=== PATIENT | female | born 1975 | race Asian ===

== ENCOUNTER → 2016-11-30 | Outpatient (CLI) | payer BC ==
--- NOTE | 2016-11-30 14:14 | KCIC ---
PROCEDURE Pelvic ultrasound dated 11/30/2016. HISTORY Left pelvic pain. TECHNIQUE Transabdominal and transvaginal imaging performed. COMPARISON None. FINDINGS Uterus measures 9.5 x 4.5 x 5.4 centimeter. Is heterogeneous nodule at the uterine fundus measures 1.7 centimeters, fibroid gross is focal area of endometrial thickening. The endometrial complex is otherwise normal in thickness for age measuring 3 millimeter. Right ovary measures 2.6 x 1.6 x 2.2 centimeter. Left ovary measures 2.2 x 1.6 x 1.5 centimeter. No adnexal mass or free fluid. Normal color Doppler flow to both ovaries. IMPRESSION - Nodular focus at the uterine fundus may represent a submucosal fibroid, although an endometrial mass cannot be excluded. The endometrium is otherwise normal in thickness for age. - Normal sonographic appearance of the ovaries. Electronically signed by: Eder Jones (Nov 30, 2016 14:13:48)
--- NOTE | 2016-11-30 14:34 | KCIC ---
PROCEDURE Complete abdominal ultrasound. HISTORY Abdominal pain, left lower quadrant. TECHNIQUE Real-time ultrasound imaging of the abdomen is performed. COMPARISON None. FINDINGS The liver measures 16 cm in length and is homogeneous in appearance. Portal flow is hepatopetal. The pancreas is homogeneous in appearance and no focal enlargement is seen. The gallbladder appears normal and no gallstones or gallbladder wall thickening is seen. No pericholecystic fluid is seen. No positive Flores's sign was elicited during transducer examination of the gallbladder. No extrahepatic biliary ductal dilatation is seen and the extrahepatic bile duct measures 4 mm. The lower pole of the right kidney is not well seen. The right kidney measures 11.5 cm in length and no hydronephrosis or renal mass or perinephric fluid collection is seen. The left kidney and the spleen are not well seen due to overlying bowel gas. The left kidney measures 11 cm in length and no hydronephrosis or renal mass or perinephric fluid collection is seen. The spleen measures 8.2 cm in length and is homogeneous in appearance. No focal aneurysmal dilatation of the abdominal aorta is seen. The IVC is unremarkable. No ascites is seen. IMPRESSION No significant sonographic abnormality of the abdomen is seen. Electronically signed by: Baudilio Rodriguez MD (Nov 30, 2016 14:32:19)
== END | disposition home or self-care (01) ==
LOC: KCIC US 12:16
PROVIDERS: ATTEND Nurse Practitioner Family
DX: R10.32 Left lower quadrant pain (principal); R10.2 Pelvic and perineal pain; R93.8 Abnormal findings on diagnostic imaging of other specified body structures
CPT/HCPCS: 76700; 76830; 76856

== ENCOUNTER → 2019-02-22 | Outpatient (CLI) | payer SELFPAY ==
--- NOTE | 2019-02-22 15:04 | KCIC ---
MRI Lumbar Spine without contrast History: Low back pain radiating to the left leg, bilateral lower extremity numbness for about 2 months Technique: Multiplanar, multi sequential noncontrast MR imaging was performed of the lumbar spine. Comparison: None Findings: There is mild motion. Lumbar vertebral body stature and AP alignment are adequate. There is mild disc desiccation L5-S1, intervertebral disc spaces relatively preserved. Conus terminates near L1. There is no significant marrow edema, trace edema of the anterior, inferior corner of L2 likely reactive/degenerative in etiology. There are small hemangiomas of L1 and T12. There is a focus of decreased signal on all sequences of the left sacrum at S2 up to about to 2 cm transverse. L1-L2, L2-3: These levels were not included on the axial images. Spinal canal and neural foramina are adequate. L3-L4: There is moderate hypertrophic change and mild buckling of the ligamentum flavum. Spinal canal and neural foramina are adequate. L4-L5: There is moderate facet hypertrophic change and mild buckling of the ligamentum flavum. Spinal canal and neural foramina are adequate. L5-S1: There is protrusion eccentric to the left lateral recess about 4 to 5 mm AP by about 6 mm transverse by 5 mm CC. There is moderate to severe left lateral recess stenosis with impingement of the descending left S1 nerve root. There is negligible disc osteophyte complex in the inferior left neural foramen. There is very mild narrowing of the left neural foramen, right neural foramen not significantly narrowed. Impression: 1. There is protrusion eccentric to left lateral recess at L5-S1 with left lateral recess stenosis and impingement of the descending left S1 nerve root. 2. There is multilevel lumbar facet degenerative change and buckling of the ligamentum flavum. 3. There is nonspecific focus of decreased signal on all sequences of left sacrum at S2, could be due to nonspecific sclerosis unless there has been previous polymethylmethacrylate injection at this level. Electronically signed by: Demarcus Montoya MD (02/22/2019 3:01 PM) [id number]
== END | disposition home or self-care (01) ==
LOC: KCIC MRI 13:14
PROVIDERS: ATTEND Nurse Practitioner Family
DX: M51.27 Other intervertebral disc displacement, lumbosacral region (principal); M48.07 Spinal stenosis, lumbosacral region; M47.816 Spondylosis without myelopathy or radiculopathy, lumbar region; M25.78 Osteophyte, vertebrae
CPT/HCPCS: 72148